=== PATIENT | female | born 1995 | race Two or more races ===

== ENCOUNTER → 2022-02-13 | Emergency (ER) | payer OTHER ==
[~2022-02-13] VITALS: Wt 57.2 kg
[~2022-02-13] MED LIST: VITAMIN C100 MG
== END | disposition home or self-care (01) ==
LOC: ER 20:31
DX: S59.901A Unspecified injury of right elbow, initial encounter (principal); W05.1XXA Fall from non-moving nonmotorized scooter, initial encounter; Y93.I9 Activity, other involving external motion; Y92.413 State road as the place of occurrence of the external cause; S69.91XA Unspecified injury of right wrist, hand and finger(s), initial encounter; Z88.0 Allergy status to penicillin; Z88.6 Allergy status to analgesic agent